=== PATIENT | male | born 1980 | race Two or more races ===

== ENCOUNTER 2019-09-17 07:46 | Emergency (ER) | payer MEDICAID, OTHER, SELFPAY ==
[~2019-09-17] VITALS: Ht 167.6 cm; Wt 107.7 kg
[2019-09-17 08:02] VITALS: BP 157/98
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
--- NOTE | 2019-09-17 08:07 | NUR ---
FLU SWAB OBTAINED AT BEDSIDE BY
--- NOTE | 2019-09-17 08:26 | NUR ---
PT BACK TO ROOM FROM XRAY AT THIS TIME.
[2019-09-17 08:35] LABS: RAPID INFLUENZA A Negative (Negative)
[2019-09-17 08:36] LABS: RAPID INFLUENZA B Negative (Negative)
--- NOTE | 2019-09-17 08:49 | NUR ---
EDMD AT BEDSIDE TO EXPLAIN ALL RESULTS AT THIS TIME.
--- NOTE | 2019-09-17 09:09 | NUR ---
Patient given discharge instructions and they have confirmed that they understand the instructions. Patient ambulatory with steady gait.
== END 2019-09-17 09:11 | disposition home or self-care (01) ==
LOC: ED 09:00
DX: J00 Acute nasopharyngitis [common cold] (principal); I10 Essential (primary) hypertension; E78.00 Pure hypercholesterolemia, unspecified
CPT/HCPCS: 71046; 87400; 99284

== ENCOUNTER 2021-02-19 19:51 | Emergency (ER) | payer MEDICAID ==
[~2021-02-19] VITALS: Ht 170.2 cm; Wt 105.0 kg
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
[2021-02-19 21:14] LABS: BASOPHILS % (AUTO) 1 % (0-1); EOSINOPHILS % (AUTO) 2 % (1-7); LYMPHOCYTES % (AUTO) 33 % (22-44); MEAN PLATELET VOLUME 9.1 fL (7.4-10.4); MONOCYTES % (AUTO) 8 % (2-9); NEUTROPHILS % (AUTO) 57 % (42-75); PLATELET COUNT 312 x10^3/uL (130-400); RED BLOOD COUNT 5.31 x10^6/uL (4.38-5.82)
[2021-02-19 21:24] LABS: ANION GAP 6 mmol/L (5-15); CALCIUM 9.2 mg/dL (8.5-10.1); CHLORIDE 103 mmol/L (98-107)
[2021-02-19 21:25] LABS: CREATININE 0.99 mg/dL (0.7-1.3)
--- NOTE | 2021-02-19 22:06 | NUR ---
Patient given discharge instructions and they have confirmed that they understand the instructions. Patient ambulatory with steady gait.
[2021-02-19 22:07] VITALS: BP 120/76
== END 2021-02-19 22:10 | disposition home or self-care (01) ==
LOC: ED 21:41
DX: J98.01 Acute bronchospasm (principal); R06.00 Dyspnea, unspecified; R05 Cough; R07.89 Other chest pain; I10 Essential (primary) hypertension; E78.00 Pure hypercholesterolemia, unspecified; R94.31 Abnormal electrocardiogram [ECG] [EKG]
CPT/HCPCS: 36415; 71045; 80048; 82040; 85025; 93005; 99285